=== PATIENT | male | born 1990 | race Two or more races ===

== ENCOUNTER 2024-07-04 18:08 | Emergency (ER) | payer OTHER ==
[~2024-07-04] VITALS: Ht 154.9 cm; Wt 75.2 kg
[2024-07-04 18:47] VITALS: BP 116/85; PULSE 83; RESP 16; O2SAT 99
[2024-07-04] MEDS ORDERED: SULF1TAB49 PO (21:55)
[2024-07-04] MEDS: sulfamethoxazole/trimethoprim DS (800/160mg) tablet PO STA (22:10)
[2024-07-04 22:48] VITALS: TEMP 98
== END 2024-07-04 23:00 | disposition home or self-care (01) ==
LOC: ER 18:09
DX: L02.811 Cutaneous abscess of head [any part, except face] (principal)
CPT/HCPCS: 99283; J7030; A6449